=== PATIENT | female | born 1945 | race Caucasian/White ===

== ENCOUNTER 2016-06-09 11:20 | Emergency (ER) | payer MEDICARE, OTHER ==
[2016-06-09 11:57] VITALS: BP 142/75
--- NOTE | 2016-06-09 12:54 | UC ---
Respiratory Complaint HPI - History of Current Complaint Chief Complaint: UCGeneralIllness Stated Complaint: UPPER RESP COMPLAINT Time Seen by Provider: 06/09/16 12:48 Hx Obtained From: Patient Onset/Duration: Gradual Onset - started 4 days ago with mild URI symps, over past 2 days has developed bad cough. Aggravating Factors: Deep Breaths, Recumbent Position Alleviating Factors: Nothing - has tried no meds except ASA Associated Signs And Symptoms: Positive: URI, Nasal Congestion. Negative: Dyspnea, Fever, Chills, Dizziness, Calf Pain - Risk Factors Pulmonary Embolism Risk Factors: Negative - Allergies/Home Medications Allergies/Adverse Reactions: Allergies Allergy/AdvReac Type Severity Reaction Status Date / Time No Known Allergies Allergy Verified 06/09/16 11:57 Home Medications: Home Medications Aspirin [Opal Advanced Aspirin Ex] 2 tab PO ONCE PRN 06/09/16 [History Confirmed 06/09/16] Chlorpheniramine-Dm [Coricidin Hbp Cough & Col 4-30 mg] 1 tab PO ONCE PRN [History Confirmed 06/09/16] PMH/Surg Hx/FS Hx/Imm Hx Previously Healthy: Yes Endocrine History Of: Denies: Diabetes, Thyroid Disease Cardiovascular History Of: Reports: Hypertension Denies: Cardiac Disorders Respiratory History Of: Denies: COPD, Asthma GI/ History Of: Denies: Ulcer Cancer History Of: Reports: Breast Cancer - BILATERAL - Surgical History Surgical History: Yes Surgery Procedure, Year, and Place: mastectomy R - Family History Known Family History: Positive: None Family History: NON CONTRIBUTORY - Social History Occupation: Employed Full-time - on farm Lives: With Family Alcohol Use: Rare Substance Use Type: None Smoking Status (MU): Never Smoked Tobacco Review of Systems Constitutional: Fatigue Skin: Negative Respiratory: Cough, Other - chest [place] when coughs Cardiovascular: Negative Gastrointestinal: Negative Neurological: Negative Psychological: Negative All Other Systems Reviewed And Are Negative: Yes Physical Exam Triage Information Reviewed: Yes Appearance: Well-Appearing, No Pain Distress, Well-Nourished Vital Signs: Initial Vital Signs Temp 98.7 F 06/09/16 11:54 Pulse 73 06/09/16 11:54 Resp 16 06/09/16 11:54 BP 142/75 06/09/16 11:54 Pulse Ox 98 06/09/16 11:54 Vital Signs Reviewed: Yes Eyes: Positive: Conjunctiva Clear ENT: Positive: Pharynx normal, Nasal congestion, TMs normal Neck: Positive: No Lymphadenopathy Respiratory: Positive: Lungs clear, Other: - harsh slightly productive cough. Negative: Respiratory distress Cardiovascular Exam: Normal Cardiovascular: Positive: RRR, No Murmur, Pulses Normal Neurological Exam: Normal Psychological Exam: Normal Skin Exam: Normal UC Diagnostic Evaluation - Laboratory O2 Sat by Pulse Oximetry: 98 Respiratory Course/Dx - Differential Dx/Diagnosis Differential Diagnosis/HQI/PQRI: Bronchitis, Influenza, Lower Resp Infection, Sinusitis Provider Diagnoses: bronchitis Discharge - Discharge Plan Condition: Stable Disposition: HOME Prescriptions: Cefdinir 300 mg PO BID #20 cap Patient Education Materials: Acute Bronchitis (ED) Referrals: Abraham Perez MD [Primary Care Provider] - 3 Days (if no better) Additional Instructions: drink plenty of fluids rest take cefdinir as directed Use Robitussin DM cough syrup as directed (over the counter) recheck if symptoms worsen at anytime
== END 2016-06-09 13:10 | disposition home or self-care (01) ==
LOC: UCEAST 11:20
DX: J40 Bronchitis, not specified as acute or chronic (principal); I10 Essential (primary) hypertension
CPT/HCPCS: 99212; G0463

== ENCOUNTER 2017-06-24 14:20 | Emergency (ER) | payer MEDICARE, OTHER ==
--- NOTE | 2017-06-24 16:18 | RAD ---
INDICATION: ] Pain status post metal gate falling on foot. Requisition notes history of prior foot fracture. COMPARISON: None. TECHNIQUE: 3 views of the right foot were obtained. FINDINGS: At the proximal pole of the right fifth metatarsal there is a circumscribed 1.7 cm bony focus. This can be seen on the lateral view as well. The remaining visualized bones appear to be intact and appropriately aligned. IMPRESSION: 1. NO DEFINITE ACUTE FRACTURE OR DISLOCATION. 2. THERE IS A 1.7 CM BONY FOCUS, WELL-CIRCUMSCRIBED, ADJACENT TO THE PROXIMAL POLE OF THE RIGHT FIFTH METATARSAL THAT POSSIBLY COULD BE RELATED TO THE PATIENT'S REPORTED PRIOR FOOT FRACTURE. If the patient's symptoms persist, follow-up imaging is recommended.
[2017-06-24 17:19] VITALS: BP 142/84
--- NOTE | 2017-06-27 10:34 | ED ---
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 She endorses 5 out of 10 pain which is discretely located over the dorsum of the foot. She is able to flex and extend at the ankle without pain. Denies any temperature changes. Denies any numbness or tingling in the foot. Denies any knee pain or lower extremity pain. Pulses +2 intact bilaterally. She is otherwise healthy has not taken any medication for the pain. There is slight ecchymosis over the dorsum of the foot. Symptoms are aggravated with standing and alleviated with rest and ice. - History of Current Complaint Chief Complaint: EDExtremityLower Stated Complaint: RIGHT FOOT PAIN Time Seen by Provider: 06/24/17 14:36 Hx Obtained From: Patient Mechanism Of Injury: Direct Blow Onset of Pain: Immediate Onset/Duration: Hours Severity Initially: Mild Severity Currently: Mild Pain Intensity: 1 Pain Scale Used: 0-10 Numeric Timing: Constant Location: Is Discrete @ - Dorsum of the right foot Character Of Pain: Aching, Throbbing Associated Signs And Symptoms: Positive: Bruising. Negative: Swelling, Redness , Fever, Weakness, Dizziness Aggravating Factor(s): Standing, Ambulation Alleviating Factor(s): Rest, Elevation, Ice Able to Bear Weight: Yes - Risk Factors Gout Risk Factors: Age Over 40 DVT Risk Factors: Negative Septic Arthritis Risk Factor: Negative - Allergies/Home Medications Allergies/Adverse Reactions: Allergies Allergy/AdvReac Type Severity Reaction Status Date / Time No Known Allergies Allergy Verified 06/09/16 11:57 PMH/Surg Hx/FS Hx/Imm Hx Previously Healthy: Yes Endocrine/Hematology History: Denies: Hx Diabetes, Hx Thyroid Disease Cardiovascular History: Reports: Hx Hypertension Respiratory History: Denies: Hx Asthma, Hx Chronic Obstructive Pulmonary Disease (COPD) GI History: Denies: Hx Ulcer Musculoskeletal History: Denies: Hx Scoliosis Neurological History: Reports: Hx Headaches - LAST THREE DAYS Denies: Other Neuro Impairments/Disorders - Cancer History Cancer Type, Location and Year: breast CA - chemotherapy (finished 1995) - Surgical History Surgery Procedure, Year, and Place: mastectomy R - Immunization History Date of Tetanus Vaccine: 04/2017 Date of Influenza Vaccine: decline Immunizations Up to Date: Yes Infectious Disease History: No Infectious Disease History: Denies: Hx Hepatitis, Hx Human Immunodeficiency Virus (HIV), Traveled Outside the [place] in Last 30 Days - Family History Known Family History: Positive: None Family History: NON CONTRIBUTORY - Social History Occupation: Unemployed Lives: With Family Alcohol Use: Rare Hx Substance Use: No Substance Use Type: Reports: None Hx Tobacco Use: No Smoking Status (MU): Never Smoked Tobacco Review of Systems Constitutional: Negative Negative: Fever, Chills, Fatigue Eyes: Negative Cardiovascular: Negative Gastrointestinal: Negative Genitourinary: Negative Positive: no symptoms reported, see HPI Positive: Bruising Neurological: Negative All Other Systems Reviewed And Are Negative: Yes Physical Exam Triage Information Reviewed: Yes Vital Signs On Initial Exam: Initial Vitals Temp Pulse Resp BP Pulse Ox 99.1 F 69 18 165/83 99 06/24/17 14:24 06/24/17 14:24 06/24/17 14:24 06/24/17 14:24 06/24/17 14:24 Vital Signs Reviewed: Yes Appearance: Positive: Well-Appearing, Well-Nourished Skin: Positive: Warm, Skin Color Reflects Adequate Perfusion Head/Face: Positive: Normal Head/Face Inspection, Temporal Artery Tenderness Eyes: Positive: EOMI, SHANNAN, Conjunctiva Clear Neck: Positive: Supple, No Lymphadenopathy Respiratory/Lung Sounds: Positive: Clear to Auscultation, Breath Sounds Present Cardiovascular: Positive: RRR, Pulses are Symmetrical in both Upper and Lower Extremities Musculoskeletal: Positive: Normal, Strength/ROM Intact Neurological: Positive: Speech Normal Psychiatric: Positive: Normal, Affect/Mood Appropriate AVPU Assessment: Alert Diagnostics - Vital Signs Vital Signs Temp Pulse Resp BP Pulse Ox 06/24/17 17:15 98.2 F 76 18 142/84 98 06/24/17 14:24 99.1 F 69 18 165/83 99 - Laboratory Lab Statement: Any lab studies that have been ordered have been reviewed, and results considered in the medical decision making process. Lower Extremity Course/Dx - Course Course Of Treatment: During the course of treatment, the patient's evaluated for right dorsum foot pain after a metal Kelsey fell on top of the foot. She states she continues to be ambulatory, but with a mild amount of pain rated a 5 out of 10. X-ray obtained which shows no soft tissue swelling or fracture. Patient is made aware for results and offered ibuprofen. She declines at this time. I have discussed following up with Mary longoria symptoms persist. She is okay with this plan and discharged. Voices no concerns at this time. - Diagnoses Provider Diagnoses: Contusion, foot Discharge - Discharge Plan Condition: Stable Disposition: HOME Patient Education Materials: Foot Contusion (ED) Referrals: Hayde Martin NP [Primary Care Provider] - Additional Instructions: Ice Elevation Aspirin or ibuprofen for pain and inflammation
== END 2017-06-24 17:15 | disposition home or self-care (01) ==
LOC: ED 14:20
DX: S90.31XA Contusion of right foot, initial encounter (principal); W22.8XXA Striking against or struck by other objects, initial encounter; Y92.9 Unspecified place or not applicable
CPT/HCPCS: 99281